=== PATIENT | female | born 1955 | race Caucasian/White ===

== ENCOUNTER 2023-01-09 14:43 | Outpatient (CLI) | payer MEDICARE | END 2023-01-09 14:44 | disposition home or self-care (01) | LOC: CSHRAD 14:43 | PROVIDERS: ATTEND Internal Medicine Endocrinology, Diabetes & Metabolism | DX: M25.532 Pain in left wrist (principal); M79.642 Pain in left hand; Z87.81 Personal history of (healed) traumatic fracture; M18.9 Osteoarthritis of first carpometacarpal joint, unspecified; M79.89 Other specified soft tissue disorders; Z98.890 Other specified postprocedural states; M19.071 Primary osteoarthritis, right ankle and foot; T84.213A Breakdown (mechanical) of internal fixation device of bones of foot and toes, initial encounter ==